=== PATIENT | female | born 1980 | race Caucasian/White ===

== ENCOUNTER 2020-02-17 16:26 | Emergency (ER) | payer OTHER ==
--- NOTE | 2020-02-17 17:39 | ED Physician Documentation ---
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 - Present Medications Home Medications: Ambulatory Orders Medication Instructions Recorded Confirmed Pseudoephedrine HCl [Sudafed 12 120 mg PO BID PRN #20 tablet.er 02/17/20 Hour] - Allergies Allergies/Adverse Reactions: Allergies Allergy/AdvReac Type Severity Reaction Status Date / Time No Known Drug Allergies Allergy Verified 02/17/20 16:36 - Social History Does the pt smoke?: No Smoking Status: Never smoker Does the pt drink ETOH?: Yes Does the pt have substance abuse?: No - Immunizations Immunizations are current?: Yes - POLST Patient has POLST: No Results - Vitals Vitals: Vital Signs - 24 hr 02/17/20 02/17/20 16:36 17:11 Temperature 36.4 C L 36.6 C Heart Rate 70 71 Respiratory 15 16 Rate Blood Pressure 122/67 131/73 H O2 Saturation 100 99 Oxygen O2 Source Room air Departure - Departure Disposition: 01 Home, Self Care Clinical Impression: Acute otalgia Qualifiers: Laterality: left Qualified Code(s): H92.02 - Otalgia, left ear Condition: Stable Instructions: ED Otitis Media Serous Adult Prescriptions: Pseudoephedrine HCl [Sudafed 12 Hour] 120 mg PO BID PRN #20 tablet.er PRN Reason: As Needed Per Provider Orders Comments: Your ear exam does not show any evidence of infection today. You do seem to have some fluid behind your eardrum, which may be causing The pain. Please take the decongestant as well as ibuprofen to help with this. If this does not improve your symptoms, you should follow-up with the ENT specialist.
[2020-02-17 17:49] VITALS: BP 113/77
== END 2020-02-17 17:52 | disposition home or self-care (01) ==
LOC: ED 16:26
DX: H92.02 Otalgia, left ear (principal)
CPT/HCPCS: 99281; 99282